=== PATIENT | female | born 1935 | race Caucasian/White ===

== ENCOUNTER 2016-10-30 15:54 | Observation (INO) | payer OTHER, MEDICARE ==
--- NOTE | 2016-10-30 16:04 | EDPHY ---
H & P Time Seen by Provider: 10/30/16 15:59 HPI/ROS: CHIEF COMPLAINT: Fall HISTORY OF PRESENT ILLNESS: The patient is an 81-year-old female with a history of dementia who is DNR who comes to the emergency department after a fall. This is her 2nd fall of the day. She has an abrasion to her right forehead. She takes Xarelto for history of rate controlled atrial fibrillation. She also has a history of COPD, CHF, seizures and gait instability. She is not sure how she fell today and neither is her caregiver who is here with her. She lives at home with her but has caregivers who come to be with her. She has not had a fever or recent infection or illness. The patient denies having any pain. She denies chest pain or shortness of breath. REVIEW OF SYSTEMS: Constitutional: See HPI EENTM: denies: blurred vision, double vision, nose congestion Respiratory: denies: cough, shortness of breath Cardiac: denies: chest pain, irregular heart rate, lightheadedness, palpitations Gastrointestinal/Abdominal: denies: abdominal pain, diarrhea, nausea, vomiting, blood streaked stools Genitourinary: denies: dysuria, frequency, hematuria, pain Musculoskeletal: denies: joint pain, muscle pain Skin: denies: lesions, rash, jaundice, bruising Neurological: denies: headache, numbness, paresthesia, tingling, dizziness, weakness Hematologic/Lymphatic: denies: blood clots, easy bleeding, easy bruising Immunologic/allergic: denies: HIV/AIDS, transplant EXAM: GENERAL: Well-appearing, well-nourished and in no acute distress. HEAD: Abrasion to right forehead, no laceration. Extraocular muscles intact. normocephalic. EYES: Pupils equal round and reactive to light, extraocular movements intact, sclera anicteric, conjunctiva are normal. ENT: TMs normal, nares patent, oropharynx clear without exudates. Moist mucous membranes. NECK: Short neck, towel roll in place, removed by me on arrival, no tenderness or pain. LUNGS: Breath sounds clear to auscultation bilaterally and equal. No wheezes rales or rhonchi. HEART: Regular rate and rhythm without murmurs, rubs or gallops. ABDOMEN: Soft, nontender, normoactive bowel sounds. No guarding, no rebound. No masses appreciated. BACK: No CVA tenderness, no spinal tenderness, step-offs or deformities EXTREMITIES: Normal range of motion, no pitting or edema. No clubbing or cyanosis. NEUROLOGICAL: Cranial nerves II through XII grossly intact. Normal speech, normal gait. 5/5 strength, normal movement in all extremities, normal sensation PSYCH: Normal mood, normal affect. SKIN: Abrasion to right forehead. Source: Patient, EMS, half-way records, Old records Exam Limitations: Clinical condition - Medical/Surgical History Hx Asthma: No Hx Chronic Respiratory Disease: No Hx Diabetes: No Hx Cardiac Disease: Yes Hx Renal Disease: No Hx Cirrhosis: No Hx Alcoholism: No Hx HIV/AIDS: No Hx Splenectomy or Spleen Trauma: No Other PMH: DIVERTICULOSIS/ANXIETY/ATRIAL FIB ALZHEIMERS. GLAUCOMA/ANEMIA - Family History Significant Family History: No pertinent family hx - Social History Smoking Status: Never smoked Alcohol Use: Sober Drug Use: None Constitutional: Initial Vital Signs Temperature (C) 36.6 C 10/30/16 16:01 Heart Rate 76 10/30/16 16:01 Respiratory Rate 16 10/30/16 16:01 Blood Pressure 163/95 H 10/30/16 16:01 O2 Sat (%) 87 L 10/30/16 16:01 O2 Delivery Mode Nasal Cannula O2 (L/minute) 2 Allergies/Adverse Reactions: morphine Allergy (Verified 10/30/16 16:01) Home Medications: Medication Instructions Recorded Acetaminophen [Tylenol 325mg (*)] 650 mg PO Q4H PRN 10/30/16 Atorvastatin Calcium [Lipitor 20 20 mg PO DAILY@20 10/30/16 mg (*)] Benzonatate [Tessalon Pearles (RX)] 200 mg PO TID PRN 10/30/16 Bimatoprost 0.01% [Lumigan 0.01% 1 drops EACHEYE DAILY 10/30/16 (*)] Bisacodyl [Dulcolax] 10 mg RC DAILY PRN 10/30/16 Brimonidine/Timolol [Combigan (*)] 1 drop RTEYE BID 10/30/16 Brinzolamide 1% [Azopt 1%] 1 drops EACHEYE TID@09,14,20 10/30/16 Escitalopram Oxalate 10 mg PO DAILY@20 10/30/16 Furosemide [Lasix 20 MG (*)] 20 mg PO EVERY OTHER DAY 10/30/16 Latanoprost 0.005% [Xalatan 0.005% 0 drops EACHEYE DAILY@10/30/16 (*)] Rivaroxaban [Xarelto] 20 mg PO DAILY@10/30/16 levETIRACETAM [Keppra Xr] 1,000 mg PO DAILY@10/30/16 Medical Decision Making - Diagnostics EKG Interpretation: An EKG obtained and was read and documented in trace view. Please see trace view for full reading and report. Atrial fibrillation, rate of 66, no acute ischemic changes, similar to previous. Imaging: X-ray: chest x-ray was obtained. I viewed the images myself on the PACS system. My interpretation of the images is: Cardiomegaly. The radiologist interpretation is cardiomegaly, no acute changes. Results: CT scan of the head and cervical spine was obtained. The results of the study are negative. The study was read by Dr. Hammer. I viewed the images myself on the PACS system. ED Course/Re-evaluation: The patient's lab work is unremarkable. Her CTs and x-ray are reassuring. She did have an episode of bradycardia to 40 while here in the emergency department. She has had multiple falls recently including to today. She is on a blood thinner. Family is requesting that she be admitted to the hospital I agree with this plan. I will speak with the hospitalist service. 7:15 p.m. I spoke with Dr. Terell Garzon who will admit to the hospital service. Differential Diagnosis: Partial list of the Differential diagnosis considered include but were not limited to; fall, intracranial injury, fracture, atrial fibrillation, sick sinus syndrome, infection and although unlikely based on the history and physical exam, I also considered seizure, aneurysm, acute coronary disease. - Data Points Laboratory Results: Laboratory Results 10/30/16 16:19 10/30/16 16:19 10/30/16 16:19 WBC 12.60 H 10^3/uL (3.80-9.50) RBC 4.46 10^6/uL (4.18-5.33) Hgb 12.8 g/dL (12.6-16.3) Hct 37.5 L % (38.0-47.0) MCV 84.1 fL (81.5-99.8) MCH 28.7 pg (27.9-34.1) MCHC 34.1 g/dL (32.4-36.7) RDW 14.2 % (11.5-15.2) Plt Count 216 10^3/uL (150-400) MPV 10.8 fL (8.7-11.7) Neut % (Auto) 77.3 H % (39.3-74.2) Lymph % (Auto) 13.0 L % (15.0-45.0) Davidson % (Auto) 7.9 % (4.5-13.0) Eos % (Auto) 0.6 % (0.6-7.6) Baso % (Auto) 0.6 % (0.3-1.7) Nucleat RBC Rel Count 0.0 % (0.0-0.2) Absolute Neuts (auto) 9.76 H 10^3/uL (1.70-6.50) Absolute Lymphs (auto) 1.64 10^3/uL (1.00-3.00) Absolute Monos (auto) 0.99 H 10^3/uL (0.30-0.80) Absolute Eos (auto) 0.07 10^3/uL (0.03-0.40) Absolute Basos (auto) 0.07 10^3/uL (0.02-0.10) Absolute Nucleated RBC 0.00 10^3/uL (0-0.01) Immature Gran % 0.6 % (0.0-1.1) Immature Gran # 0.07 10^3/uL (0.00-0.10) PT 21.1 H SEC (12.0-15.0) INR 1.81 H (0.83-1.16) APTT 34.4 SEC (23.0-38.0) Sodium 139 mEq/L (134-144) Potassium 4.2 mEq/L (3.5-5.2) Chloride 101 mEq/L (97-110) Carbon Dioxide 25 mEq/l (22-31) Anion Gap 13 mEq/L (8-16) BUN 12 mg/dL (7-23) Creatinine 0.7 mg/dL (0.6-1.0) Estimated GFR > 60 Glucose 137 H mg/dL (70-100) Calcium 9.2 mg/dL (8.5-10.4) Troponin I 0.015 ng/mL (0-0.034) NT-Pro-B Natriuret Pep 2450 H pg/mL (0-450) Ethyl Alcohol < 10 mg/dL (0-10) Medications Given: Discontinued Medications Sodium Chloride (Ns) 1,000 mls @ 0 mls/hr IV ONCE ONE PRN Reason: Wide Open Stop: 10/30/16 19:41 Last Admin: 10/30/16 19:51 Dose: 1,000 mls Ondansetron HCl (Zofran) 4 mg IVP EDNOW ONE Stop: 10/30/16 19:41 Last Admin: 10/30/16 19:52 Dose: 4 mg Departure - Departure Disposition: [facility] Inpatient Acute Clinical Impression: Bradycardia Fall Qualifiers: Encounter type: initial encounter Qualifier Code: (W19.XXXA) Unspecified fall, initial encounter Condition: Fair
--- NOTE | 2016-10-30 16:11 | CPEKG ---
Heart Rate: 66 RR Interval: 909 QRSD Interval: 80 QT Interval: 428 QTC Interval: 449 QRS [place]: 14 T Wave [place]: 39 EKG Severity - ABNORMAL ECG - EKG Impression: ATRIAL FIBRILLATION Electronically Signed By: Atilio Estrada 30-Oct-2016 16:17:55
[2016-10-30 16:30] LABS: % IMMATURE GRANULYOCYTES 0.6 % (0.0-1.1); ABSOLUTE IMMATURE GRANULOCYTES 0.07 10^3/uL (0.00-0.10); ADD DIFF? NO; ADD MORPH? NO; ADD SCAN? NO; ATYPICAL LYMPHOCYTE FLAG 0 (0-99); FRAGMENT RBC FLAG 0 (0-99); HEMATOCRIT 37.5 % (38.0-47.0); HEMOGLOBIN 12.8 g/dL (12.6-16.3); LEFT SHIFT FLG 0 (0-99); LIPEMIA HEMOLYSIS FLAG 90 (0-99); MEAN CELL HEMOGLOBIN 28.7 pg (27.9-34.1); MEAN CELL HEMOGLOBIN CONCENTR. 34.1 g/dL (32.4-36.7); MEAN CELL VOLUME 84.1 fL (81.5-99.8); MEAN PLATELET VOLUME 10.8 fL (8.7-11.7); PLATELET CLUMPS FLAG 0 (0-99); PLATELET COUNT 216 10^3/uL (150-400); RED BLOOD CELL COUNT 4.46 10^6/uL (4.18-5.33); RED CELL DISTRIBUTION WIDTH 14.2 % (11.5-15.2)
--- NOTE | 2016-10-30 16:38 | DX ---
AP chest x-ray 1622 hours. History: Chest pain with syncope and recent fall. Findings: Comparison to April 01, 2016. Heart size remains mildly enlarged. Pulmonary vasculature is not significant engorged. There is no co nsolidation, effusion, or pneumothorax. Osseous structures are unchanged. Impression: 1. Stable mild cardiomegaly. 2. No active cardio pulmonary disease seen.
[2016-10-30 16:39] LABS: APTT 34.4 SEC (23.0-38.0); INR 1.81 (0.83-1.16); PROTIME(PATIENT) 21.1 SEC (12.0-15.0)
[2016-10-30 16:42] LABS: ANION GAP 13 mEq/L (8-16); CALCIUM 9.2 mg/dL (8.5-10.4); CARBON DIOXIDE 25 mEq/l (22-31); CHLORIDE 101 mEq/L (97-110); CREATININE 0.7 mg/dL (0.6-1.0); ETHANOL SERUM < 10 mg/dL (0-10); GLOMERULAR FILTRATION RATE > 60; GLUCOSE 137 mg/dL (70-100); POTASSIUM 4.2 mEq/L (3.5-5.2); SODIUM 139 mEq/L (134-144)
[2016-10-30 16:53] LABS: TROPONIN I 0.015 ng/mL (0-0.034)
--- NOTE | 2016-10-30 17:23 | CT ---
CT head (Without Contrast) at 1655 hour Clinical Indication: Closed head injury. Fell twice today. Abrasions over right eye and cheek. Histor y of tentorial meningioma.. Technique: Axial imaging was obtained through the calvarium. Images were reconstructed down to 1.5 m m slice thickness and reviewed in multiple planes. Dose reduction techniques were utilized. Findings: Comparison to prior CT study from September 10, 2016. Left tentorial partially calcified meningioma is stable measuring about 20 x 18 mm (previously 21 x 1 7 mm). There are no new intracranial masses, subdural collections, evidence of recent cerebral infarc tion. Remote subcortical infarct is once again noted right posterior frontal lobe superiorly. The ventricles, cisterns, and sulci are widened consistent with stable moderate atrophy. No hydroceph alus, midline shift, herniation, or epidural/subdural hematomas. Cerebellar tonsils are in normal pos ition. There is mild mucosal thickening involving the ethmoid air cells. Otherwise, the paranasal sinuses and mastoid air cells are clear. There are scattered moderate areas of decreased attenuation in the periventricular white matter stable in appearance. Impression: 1. Stable moderate cerebral atrophy. 2. Stable mild microvascular ischemic disease. 3. No acute infarct, hemorrhage, hydrocephalus, mass effect, or herniation. 4. 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 5. 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 6. Nonspecific ethmoid sinus disease. These findings were discussed by telephone with Dr. Atilio Estrada at 1720 hrs.
--- NOTE | 2016-10-30 17:28 | CT ---
CT Cervical Spine 1655 hours History: Recent trauma. Evaluate for possible cervical spine injury. Technique: Spiral imaging was obtained from the base of skull to the upper chest. Images were reconst ructed at 1.25 mm slice thickness. Images were reconstructed in multiple planes. Dose reduction techn iques were utilized. Findings: Vertebral body heights are well maintained. There are no subluxations. No fractures are see n. There is bony fusion across the left C2-C3 facet. Moderate facet hypertrophy is present bilaterall y at C3-C4 and C4-C5 with mild facet hypertrophy at C5-C6, C6-C7, and C7-T1. There is mild disk space narrowing at C3-C4 with marked disk space narrowing at C4-C5 and at C5-C6. There is about 2 mm of po sterior subluxation of C5 with respect to C4 and C6 that appears be related to facet hypertrophy. Par avertebral soft tissues demonstrate no significant abnormality. Impression: 1. No acute osseous abnormality seen about the cervical spine. 2. Degenerative disk disease and facet hypertrophy as detailed above. These findings were discussed by telephone with Dr. Atilio Estrada at 1720 hrs.
[2016-10-30] MEDS ORDERED: ONDANSETRON 4 MG/2 ML VIAL ONE (19:30)
[2016-10-30] MEDS ORDERED: NS 1,000 ML IV ONE (19:40)
[2016-10-30] MEDS ORDERED: ONDANSETRON 4 MG/2 ML VIAL IVP ONE (19:40)
[2016-10-30 19:54] LABS: COLOR YELLOW; LEUKOCYTE ESTERASE,URINE NEGATIVE (NEGATIVE); NITRITE,URINE NEGATIVE (NEGATIVE)
[2016-10-30 20:05] LABS: MUCUS TRACE /lpf (NONE-1+)
[2016-10-30] MEDS ORDERED: oxyCODONE IR 5 MG TAB PO PRN (20:37)
[2016-10-30] MEDS ORDERED: ACETAMINOPHEN 325 MG TAB PO PRN ×2 (20:37→20:40)
[2016-10-30] MEDS ORDERED: ONDANSETRON 4 MG/2 ML VIAL IVP PRN (20:37)
[2016-10-30] MEDS ORDERED: PROMETHAZINE HCL 25 MG/ML VIAL IVP PRN (20:37)
[2016-10-30] MEDS ORDERED: ONDANSETRON DISINTEGRATING 4 MG TAB PO PRN (20:37)
[2016-10-30] MEDS ORDERED: ALBUTEROL 3 ML DEYVIAL IH PRN (20:37)
[2016-10-30] MEDS ORDERED: BISACODYL 10 MG SUPP PR PRN (20:40)
[2016-10-30] MEDS ORDERED: BENZONATATE 100 MG CAP PO PRN (20:40)
[2016-10-30] MEDS ORDERED: hydrALAZINE 20 MG/ML VIAL IVP PRN (20:47)
[2016-10-30] MEDS ORDERED: LATANOPROST 0.005% 2.5 ML OPHT DROPS EACHEYE SCH (21:00)
[2016-10-30] MEDS ORDERED: RIVAROXABAN 20 MG TAB PO SCH (21:00)
[2016-10-30] MEDS ORDERED: ATORVASTATIN CALCIUM 20 MG TAB PO SCH (21:00)
[2016-10-30] MEDS ORDERED: IPRATROPIUM/ALBUTEROL 3 ML DEYVIAL ONE (21:05)
[2016-10-30] MEDS: IPRATROPIUM/ALBUTEROL 3 ML DEYVIAL IH SCH (21:08)
[2016-10-30] MEDS: guaiFENesin 600 MG TAB.ER PO SCH (21:24)
--- NOTE | 2016-10-30 21:36 | GHP ---
[f rep st] HISTORY AND PHYSICAL DATE OF ADMISSION: 10/30/2016 CHIEF COMPLAINT: Fall. HISTORY: This is an 81-year-old female, who has a past medical history of COPD as well as diastolic heart failure and dementia, who presents after 2 falls at home today. The patient lives independentl y at [facility], but she does have a caregiver who is with her frequently. Caregiver notes that th is morning she was noted to have fallen after tripping over something walking in the breakfast line a t her assisted living facility. This afternoon, she was found down on the floor, awake, but after ap parently having fallen again. The patient herself is limited in her ability to give much of a histor y secondary to her dementia. She states that she just fell, but this is with a significant amount of prodding as it does not seem she is able to actually recall the incident. She does have an injury w ith an abrasion over her right eyebrow. She is on chronic anticoagulation for chronic atrial fibrill ation. She was monitored in the ER with her workup being unremarkable other than an episode of michael cardia which was brief, but was significant for her heart rate going down into the 40s. This was asy mptomatic apparently. She, otherwise, complains of having some congestion for the last couple of wee ks, without fevers or chills, and with a dry hacking cough. PAST MEDICAL HISTORY: Includes: 1. COPD. 2. Diastolic heart failure. 3. Hypertension. 4. History of meningioma. 5. Seizure disorder. 6. Chronic atrial fibrillation, on chronic anticoagulation. 7. Dementia. PAST SURGICAL HISTORY: Denies. SOCIAL HISTORY: Patient is , and lives independently with her as well as with a careg iver who is visiting her for about 8 hours per day. She does have a daughter who lives nearby. She is a never smoker. Denies significant alcohol use and no drug use. REVIEW OF SYSTEMS: A 10-point review of systems obtained and negative, except as per HPI. MEDICATIONS: Include: 1. Brinzolamide. 2. Xarelto. 3. Latanoprost. 4. .. 5. Bisacodyl. 6. Tessalon Perles. 7. Tylenol. 8. Keppra. 9. Brimonidine. 10. Bimatoprost. 11. Atorvastatin. 12. Lasix. ALLERGIES: Morphine. CLINICAL DATA: Labs reviewed significant for white blood cell count of 12.6, hematocrit 37.5, platel ets of 216. INR is 1.8. Chemistry is remarkable for glucose of 137. She had a recent hemoglobin A1 c of 6.8. ProBNP is 2450. Troponin is 0.015. Urinalysis shows 2+ protein, 1+ ketones, 1+ blood. A lcohol level is negative. Chest x-ray, reviewed and interpreted independently by myself, shows stable cardiomegaly with no acut e findings. Head and neck CT, reviewed and interpreted independently by myself, showing nothing acute. EKG, reviewed and interpreted independently by myself, showing atrial fibrillation with a rate of 66. No acute ischemic changes. ASSESSMENT AND PLAN: This is an 81-year-old female with a past medical history includes dementia, ch ronic obstructive pulmonary disease and chronic atrial fibrillation presenting status post multiple f alls at home. PROBLEMS: 1. Falls: This in the setting of being on chronic anticoagulation for atrial fibrillation. Her hea d CT is reassuring. She does have dementia, so the exam is somewhat limited by her baseline cognitiv e dysfunction. She will be monitored overnight. Uncertain if her falls are in the setting of syncop e as at least one of them was unwitnessed and the patient herself is a poor historian. 2. Question syncope: As per above, plan will be to monitor on telemetry with serial troponins and E KGs. We will obtain an echocardiogram in the morning. We will also evaluate for possible occult inf ection; though at this point, there is no significant metabolic derangements or obvious evidence of i nfection on chest x-ray or UA. We will send for influenza swab as well. 3. Respiratory symptoms: The patient complaining of congestion and shortness of breath. She does h ave underlying presumed COPD versus reactive airways disease. She is not hypoxic, and chest x-ray is relatively unremarkable though her BNP is elevated and she does have some lower extremity edema. Wi ll treat with IV Lasix while she is in house for mild volume overload as well as nebulizer treatments for possible COPD exacerbation. 4. Chronic diastolic heart failure: As per above. Suspect a mild exacerbation. She does have some lower extremity edema. No josiah pulmonary edema on x-ray. IV Lasix 20 twice daily for now. 5. Chronic obstructive pulmonary disease: Again query mild exacerbation. She does have breath soun ds on exam and is not hypoxic; however, she has been having worsening congestion and shortness of raina ath for the last couple of weeks. Scheduled DuoNeb and albuterol p.r.n. as well as Mucinex. 6. Uncontrolled hypertension: The patient's blood pressure has been ranging from 160s-200s systolic . Caregiver at bedside does believe that this is relatively new. Again serial troponins and echocar diogram in the morning. Will also provide p.r.n. hydralazine in addition to her usual home medicatio ns. 7. Dementia: This does seem to be at baseline. 8. Seizure disorder: Continue Keppra. 9. Code status is DNR. 10. Disposition: Observation status. I suspect she may need less than 48 hours stay for evaluation and management of above. Patient is new to my care. Old records were reviewed and summarized as pe r HPI and Past Medical History. 11. Care plan reviewed with Dr. Estrada in the emergency department. Further history obtained from patient's caregiver present at bedside. /[id number]/MODL
[2016-10-30] MEDS: BRIMONIDINE/TIMOLOL 5 ML OPHT.BTL RTEYE SCH (22:40)
[2016-10-30] MEDS: Brinzolamide 1% 10 ml OPHT.BTL EACHEYE SCH (22:40)
[2016-10-30] MEDS: levETIRAcetam 500 MG TAB PO SCH (22:41)
[2016-10-31] MEDS: IPRATROPIUM/ALBUTEROL 3 ML DEYVIAL IH SCH ×2 (05:06→12:00)
--- NOTE | 2016-10-31 05:14 | CPEKG ---
Heart Rate: 66 RR Interval: 909 QRSD Interval: 84 QT Interval: 424 QTC Interval: 445 QRS [place]: 37 T Wave [place]: 40 EKG Severity - ABNORMAL ECG - EKG Impression: ATRIAL FIBRILLATION, V-RATE 54-79 Electronically Signed By: Bimal Chandler 31-Oct-2016 10:50:31
[2016-10-31 06:12] LABS: % IMMATURE GRANULYOCYTES 0.5 % (0.0-1.1); ABSOLUTE IMMATURE GRANULOCYTES 0.05 10^3/uL (0.00-0.10); ADD DIFF? NO; ADD MORPH? NO; ADD SCAN? NO; ATYPICAL LYMPHOCYTE FLAG 0 (0-99); FRAGMENT RBC FLAG 0 (0-99); HEMATOCRIT 34.6 % (38.0-47.0); HEMOGLOBIN 11.8 g/dL (12.6-16.3); LEFT SHIFT FLG 0 (0-99); LIPEMIA HEMOLYSIS FLAG 90 (0-99); MEAN CELL HEMOGLOBIN 28.5 pg (27.9-34.1); MEAN CELL HEMOGLOBIN CONCENTR. 34.1 g/dL (32.4-36.7); MEAN CELL VOLUME 83.6 fL (81.5-99.8); MEAN PLATELET VOLUME 10.8 fL (8.7-11.7); PLATELET CLUMPS FLAG 0 (0-99); PLATELET COUNT 191 10^3/uL (150-400); RED BLOOD CELL COUNT 4.14 10^6/uL (4.18-5.33); RED CELL DISTRIBUTION WIDTH 14.4 % (11.5-15.2)
[2016-10-31 06:33] LABS: ANION GAP 11 mEq/L (8-16); CALCIUM 8.9 mg/dL (8.5-10.4); CARBON DIOXIDE 25 mEq/l (22-31); CHLORIDE 105 mEq/L (97-110); CREATININE 0.7 mg/dL (0.6-1.0); GLOMERULAR FILTRATION RATE > 60; GLUCOSE 120 mg/dL (70-100); POTASSIUM 3.9 mEq/L (3.5-5.2); SODIUM 141 mEq/L (134-144)
[2016-10-31 06:42] LABS: TROPONIN I 0.027 ng/mL (0-0.034)
[2016-10-31] MEDS: levETIRAcetam 500 MG TAB PO SCH (07:43)
[2016-10-31] MEDS: guaiFENesin 600 MG TAB.ER PO SCH (07:44)
[2016-10-31 08:11] VITALS: PULSE 73; O2SAT 97
[2016-10-31] MEDS ORDERED: BIMATOPROST 0.01% 2.5 ML OPHT.BTL EACHEYE SCH (09:00)
[2016-10-31] MEDS ORDERED: FUROSEMIDE 20 MG/2 ML VIAL IVP SCH (09:00)
[2016-10-31] MEDS: Brinzolamide 1% 10 ml OPHT.BTL EACHEYE SCH (09:59)
[2016-10-31] MEDS: BRIMONIDINE/TIMOLOL 5 ML OPHT.BTL RTEYE SCH (09:59)
[2016-10-31 12:22] VITALS: BP 149/92; RESP 20; TEMP 98.2
--- NOTE | 2016-10-31 13:08 | ECHO ---
[id number] + + [id number] : : [place] [address] : : [phone] + + Adult Echocardiographic Report + --------+ :Name: REINA GUERRERO JStudy Date: 10/31/2016 09:54 AM BP: 158/86 mm Hg : : Hospital Admission Number: [id number] Locat ion: 222: :: 1935 Gender: Female Height: 60 in : :Age: 81 yrs Race: Weight: 157 l b : :Reason For Study: syncope : : BSA: 1.7 mete rs2 : :History: syncope, afib : + --------+ MMode/2D Measurements & Calculations IVSd: 1.2 cm RVDd: 3.3 cm FS: 37.6 % Ao root diam: LVPWd: 0.94 cm LVIDd: 4.1 cm EDV(Teich): 73.1 ml3.0 cm LVIDs: 2.5 cm ESV(Teich): 23.3 mlLA dimension: EF(Teich): 68.2 % 3.7 cm LVOT diam: 2.0 cmLVLd ap4: 7.5 cm SV(MOD-sp4): LVOT area: EDV(MOD-sp4): 67.0 ml 3.1 cm2 101.0 ml LVLs ap4: 6.3 cm ESV(MOD-sp4): 34.0 ml EF(MOD-sp4): 66.3 % Normal Measurement Values: + + :LVIDd (3.5-5.7cm) IVSd (0.6-1.1cm) LVPWd (0.6-1.1cm) Aortic Root (2.0-3.7cm)Left Atrium (1.5-4.0cm): :LV Vol(d) (76-115ml) LV Vol(s) (29-48ml) Ejec Fraction (50-65%)PV Jose (0.6- 1.2m/s) TV Jose (0.4-1.0m/s) : :MV E Jose (0.8-1.0m/s)MV A Jose (0.3-1.0m/s)LVOT Jose (0.7-1.2m/s) Asc Ao Jose ( 0.9-1.8m/s) : + + Doppler Measurements & Calculations MV E max jose: Ao V2 max: LV V1 max: PA V2 max: 106.6 cm/sec 142.0 cm/sec 69.1 cm/sec 74.9 cm/sec MV A max jose: Ao max P.1 mmHgLV V1 max PG: PA max P.5 cm/sec SERENITY(V,D): 1.5 cm2 1.9 mmHg 2.2 mmHg MV E/A: 2.6 MV dec time: 0.18 sec TR max jose: 298.0 cm/sec TR max P.5 mmHg RAP systole: 5.0 mmHg RVSP(TR): 40.5 mmHg Left Ventricle The left ventricle is normal in size and function. There is mild concentric left ventricular hypertrophy. Ejection Fraction = 65-70%. Diastolic Function Indeterminate due to afib.. No regional wall motion abnormalities noted. Right Ventricle The right ventricle is normal in size and function. Atria The Left Atrial Volume is 45 ml/m2. The left atrium is moderately dilated. The right atrium is mildly dilated. The interatrial septum is intact with no evidence for an atrial septal defect. Mitral Valve The mitral valve leaflets appear thickened, but open well. There is mild mitral annular calcification. There is no mitral valve stenosis. There is mild mitral regurgitation. Tricuspid Valve The tricuspid valve is normal in structure and function. There is no tricuspid stenosis. Right ventricular systolic pressure is 41mmHg. There is Doppler evidence for moderate pulmonary hypertension. Aortic Valve The aortic valve is trileaflet. There is mild aortic valve calcification. There is no aortic stenosis. Mild aortic regurgitation. Pulmonic Valve The pulmonic valve is normal in structure and function. There is no pulmonic valvular stenosis. There is no pulmonic valvular regurgitation. Great Vessels The aortic root is normal size. Pericardium/Pleural trivial pericardial effusion. There is a fat pad seen. Conclusion A two-dimensional transthoracic echocardiogram with M-mode and Doppler was performed. The left ventricle is normal in size and function. There is mild concentric left ventricular hypertrophy. Ejection Fraction = 65-70%. The Left Atrial Volume is 45 ml/m2. The left atrium is moderately dilated. The right atrium is mildly dilated. Right ventricular systolic pressure is 41mmHg. Mild aortic regurgitation. trivial pericardial effusion. There is mild mitral regurgitation. There is Doppler evidence for moderate pulmonary hypertension. Final Reading Physician: Chin Gamble electronically signed on 10/31/2016 01:06 PM Ordering Physician: Terell Garzon Performed By: Deanna Mercer
--- NOTE | 2016-10-31 14:00 | PDIAF ---
- Diagnosis Diagnosis: falls Code Status: Do Not Resuscitate - Medication Management Discharge Medications: Medications to Continue on Transfer Acetaminophen [Tylenol 325mg (*)] 650 mg PO Q4H PRN 10/30/16 [Last Taken Unknown ] Atorvastatin Calcium [Lipitor 20 mg (*)] 20 mg PO DAILY@10/30/16 [Last Taken Unknown] Benzonatate [Tessalon Pearles] 200 mg PO TID PRN 10/30/16 [Last Taken Unknown] Bimatoprost 0.01% [Lumigan 0.01% (*)] 1 drops EACHEYE DAILY 10/30/16 [Last Taken Unknown] Bisacodyl [Dulcolax] 10 mg RC DAILY PRN 10/30/16 [Last Taken Unknown] Brimonidine/Timolol [Combigan (*)] 1 drop RTEYE BID 10/30/16 [Last Taken Unknown ] Brinzolamide 1% [Azopt 1%] 1 drops EACHEYE TID@,,10/30/16 [Last Taken Unknown] Escitalopram Oxalate 10 mg PO DAILY@10/30/16 [Last Taken Unknown] Furosemide [Lasix 20 MG (*)] 20 mg PO EVERY OTHER DAY 10/30/16 [Last Taken Unknown] Latanoprost 0.005% [Xalatan 0.005% (*)] 0 drops EACHEYE DAILY@10/30/16 [Last Taken Unknown] Rivaroxaban [Xarelto] 20 mg PO DAILY@10/30/16 [Last Taken Unknown] levETIRACETAM [KEPPRA XR 500 mg] 1,000 mg PO DAILY@10/30/16 [Last Taken Unknown] Discharge Medications: Refer to the Discharge Home Medication list for PRN reason. - Orders Services needed: Home Care, Physical Therapy, Occupational Therapy Home Care Face to Face: I certify that this patient was under my care and that I had the required [id number] encounter meeting the encounter requirements on the discharge day. My findings support the fact that the patient is homebound as defined in CMS Chapter 7 Medicare Benefits Manual 30.1.1, The condition of the patient is such that there exists a normal inability to leave home and consequently, leaving home would require a considerable and taxing effort. - Follow Up Care Current Providers and Referrals: Nandini Pacheco MD [Primary Care Provider] - As per Instructions
--- NOTE | 2016-10-31 15:22 | GDS ---
[f rep st] DISCHARGE SUMMARY DISCHARGE DIAGNOSES: 1. Falls. 2. Chronic weakness. 3. Dementia. 4. Possible mild diastolic congestive heart failure exacerbation. 5. Severe dementia. 6. Chronic obstructive pulmonary disease. 7. History of seizures. 8. Atrial fibrillation. HISTORY: This is an 81-year-old female, who had 2 falls at home. HOSPITAL COURSE: Patient was admitted on telemetry and was monitored overnight on telemetry. Echoca rdiogram was done which did not show any significant abnormalities. Physical Therapy did see the pat ient and saw that she was fairly weak and would benefit from rehab. However, her daughter does feel that she would be better off back at [facility] and they could do outpatient rehab at that time. S he is aware of the risk of falls with this approach. She does have a caregiver as well, so she will be sent back to [facility] with home physical therapy. DISPOSITION: Home. DISCHARGE MEDICATIONS: She is to resume her home medicines. /[id number]/MODL
[2016-10-31] MEDS ORDERED: ESCITALOPRAM OXALATE 10 MG TAB PO SCH (20:00)
[2016-11-01] MEDS ORDERED: FUROSEMIDE 20 MG TAB PO SCH (09:00)
== END 2016-10-31 15:23 | disposition home health service (06) ==
LOC: EDUNIT# → F2W 20:16
PROVIDERS: ADMIT Internal Medicine; ATTEND Internal Medicine
DX: S00.81XA Abrasion of other part of head, initial encounter (principal); W01.198A Fall on same level from slipping, tripping and stumbling with subsequent striking against other object, initial encounter; Y92.128 Other place in nursing home as the place of occurrence of the external cause; Y93.89 Activity, other specified; R29.6 Repeated falls; R26.81 Unsteadiness on feet; Z91.81 History of falling; R53.1 Weakness; F03.90 Unspecified dementia, unspecified severity, without behavioral disturbance, psychotic disturbance, mood disturbance, and anxiety; I50.32 Chronic diastolic (congestive) heart failure; J44.9 Chronic obstructive pulmonary disease, unspecified; G40.909 Epilepsy, unspecified, not intractable, without status epilepticus; I10 Essential (primary) hypertension; I48.2 Chronic atrial fibrillation; Z66 Do not resuscitate; Z79.01 Long term (current) use of anticoagulants
CPT/HCPCS: 70450; 71010; 72125; 92523; 93005; 93306; 96361; 96374; 97162; 97165; 99285; G0378; G8978; G8979; G8987; G8988; G9168; G9169; G9170; J2405; G0480

== ENCOUNTER → 2017-05-11 | Outpatient (CLI) | payer OTHER, MEDICARE ==
[~2017-05-11] MED LIST: GADOBUTROL 10 ML VIAL IVP ONE
== END ==
LOC: FIMAGING 19:16
PROVIDERS: ATTEND Physician Assistant Surgical
DX: D32.9 Benign neoplasm of meninges, unspecified (principal); I67.82 Cerebral ischemia
CPT/HCPCS: 70553; A9585